=== PATIENT | female | born 1940 | race Caucasian/White ===

== ENCOUNTER 2018-10-08 12:52 | Emergency (ER) | payer MEDICARE ==
[~2018-10-08] VITALS: Ht 160 cm; Wt 83.9 kg
--- OUTSIDE RECORDS SUMMARY | 2018-10-08 12:55 | XMS REPORT ---
Author Author [facility] Address Unknown Phone Unavailable Care Team Providers Care Principal Statistical Scientist Name Role Phone Unavailable Unavailable Problems This patient has no known problems. Allergies, Adverse Reactions, Alerts This patient has no known allergies or adverse reactions. Medications This patient has no known medications.
--- OUTSIDE RECORDS SUMMARY | 2018-10-08 12:55 | XMS REPORT | Clinical Summary ---
Author Author [facility] Address Unknown Phone Unavailable Care Team Providers Care Safety Lead Name Role Phone Teddy Mccoy MD PCP Allergies Comments Active Allergy Reactions Severity Noted Date Atorvastatin 05/21/2018 Medications End Date Status Medication Sig Dispensed Refills Start Date Active ALPRAZolam (XANAX) 0.25 Take 0.25 mg 0 02/14/ MG tablet by mouth 2 8 (two) times a day as needed. Active omeprazole (PriLOSEC) 20 Take 20 mg by 0 MG capsule mouth daily. Active aspirin (ECOTRIN) 81 MG Take 81 mg by 0 enteric coated tablet mouth daily. Active felodipine (PLENDIL) 5 MG Take 1 tablet 30 tablet 1 24 hr tablet (5 mg total) 9 by mouth nightly. Active valsartan-hydrochlorothia 0 zide (DIOVAN-HCT) 320-25 9 mg per tablet Active gabapentin (NEURONTIN) 0 300 mg capsule 9 11/24/2018 Active metoprolol succinate XL Take 1 tablet 90 tablet 4 (TOPROL-XL) 100 mg 24 hr (100 mg 9 tablet total) by mouth daily for 90 doses. 11/24/2018 Active colesevelam (WELCHOL) 625 Take 3 540 tablet 3 mg tablet tablets 9 (1,875 mg total) by mouth 2 (two) times a day with meals for 90 days. Active gemfibrozil (LOPID) 600 TAKE 1 TABLET 180 tablet 3 MG tabletIndications: BY MOUTH TWO 9 Hyperlipidemia, TIMES DAILY unspecified hyperlipidemia type 07/03/2018 Discontinued gemfibrozil (LOPID) 600 Take 600 mg 0 MG tablet by mouth 2 (two) times a day. 08/26/2018 Discontinued metoprolol succinate XL Take 25 mg by 0 (TOPROL-XL) 25 mg 24 hr mouth daily. tablet 08/26/2018 Discontinued colesevelam (WELCHOL) 625 Take 1,875 mg 0 mg tablet by mouth 2 (two) times a day with meals. 09/29/2018 Discontinued gemfibrozil (LOPID) 600 Take 1 tablet 360 tablet 0 07/03/201 MG tabletIndications: (600 mg 9 Hyperlipidemia, total) by unspecified mouth 2 (two) hyperlipidemia type times a day. 07/08/2018 Discontinued felodipine (PLENDIL) 5 MG Take 5 mg by 0 24 hr tablet mouth nightly. Active Problems Problem Noted Date Congestive heart failure 05/21/2018 Coronary artery disease involving [place] coronary artery of [place] heart 05/21/2018 without angina pectoris Bradycardia 05/21/2018 Nonrheumatic aortic valve stenosis 05/21/2018 Essential hypertension 05/21/2018 Mixed hyperlipidemia 05/21/2018 Encounters Care Team Description Date Type Specialty Teddy Mccoy MD Hyperlipidemia, unspecified hyperlipidemia type 09/29/2018 Refill Family Medicine Audrey Hill MA 08/27/2018 Telephone Family Medicine Teddy Mccoy MD Essential hypertension (Primary Dx); Pulmonary hypertension (HCC); Mixed hyperlipidemia 08/26/2018 Office Visit Family Medicine Hector Berkowitz MD Results 07/08/2018 Telephone Cardiology Audrey Hill MA Hyperlipidemia, unspecified hyperlipidemia type (Primary Dx) 07/03/2018 Refill Family Medicine Hector Berkowitz MD Results 06/30/2018 Telephone Cardiology Hector Berkowitz MD Mixed hyperlipidemia (Primary Dx); Essential hypertension; Nonrheumatic aortic valve stenosis; Bradycardia; Coronary artery disease involving [place] coronary artery of [place] heart without angina pectoris; Congestive heart failure, unspecified HF chronicity, unspecified heart failure type (HCC); Bilateral carotid artery stenosis 05/21/2018 Office Visit Cardiology after 10/07/2017 Family History Medical History Relation Name Comments CABG/Stent Father Heart attack Mother Relation Name Status Comments Father Mother Social History Date Tobacco Use Types Packs/Day Years Used Never Smoker Smokeless Tobacco: Never Used Tobacco Cessation: Counseling Given: Yes Alcohol Use Drinks/Week oz/Week Comments No Alcohol Habits Answer Date Recorded How often do you have a drink containing alcohol? Never 05/21/2018 How many drinks containing alcohol do you have on Not asked a typical day when you are drinking? How often do you have six or more drinks on one Not asked occasion? Sex Assigned at Date Recorded Not on file Industry Job Start Date Occupation Not on file Not on file Not on file Travel End Travel History Travel Start No recent travel history available. Last Filed Vital Signs Time Taken Vital Sign Reading 08/26/2018 10:43 AM CDT Blood Pressure 182/80 08/26/2018 10:43 AM CDT Pulse 64 08/26/2018 10:43 AM CDT Temperature 36.4 C (97.6 F) 05/21/2018 2:23 PM DAIRY LAB TECHNICIAN Respiratory Rate 18 08/26/2018 10:43 AM CDT Oxygen Saturation 98% - Inhaled Oxygen - Concentration 08/26/2018 10:43 AM CDT Weight 85.7 kg (189 lb) 08/26/2018 10:43 AM CDT Height 160 cm (5' 3") 08/26/2018 10:43 AM CDT Body Mass Index 33.48 Plan of Treatment Care Team Description Date [place] [address] [place] [address] [phone] 05/28/2019 Office Visit Cardiology Health Maintenance Due Date Last Done Comments SHINGLES VACCINES (#1) 1989 65+ PNEUMOCOCCAL VACCINE 2004 (1 of 2 - PCV13) PNEUMOCOCCAL 2004 POLYSACCHARIDE VACCINE AGE 65 AND OVER INFLUENZA VACCINE 01/08/2019 Procedures Comments Procedure Name Priority Date/Time Associated Diagnosis COMPREHENSIVE METABOLIC Routine 08/26/2018 PANEL 11:09 AM CDT LIPID PANEL Routine 08/26/2018 11:09 AM CDT CBC HEMOGRAM Routine 08/26/2018 Essential hypertension 11:09 AM CDT Pulmonary hypertension (HCC) US CAROTID DUPLEX Routine 06/20/2018 Bilateral carotid artery BILATERAL 10:26 AM DAIRY LAB TECHNICIAN stenosis ECHOCARDIOGRAM 2D Routine 06/20/2018 Nonrheumatic aortic valve COMPLETE W MMODE SPECTRAL 10:00 AM DAIRY LAB TECHNICIAN stenosis COLOR DOPPLER (22232) Coronary artery disease involving [place] coronary artery of [place] heart without angina pectoris after 10/07/2017 Results * CBC hemogram (08/26/2018 11:09 AM CDT) WBC 5.7 3.8 - 10.8 Thousand/uL [facility] [place] RBC 4.42 3.80 - 5.10 Million/uL [facility] [place] HGB 11.9 11.7 - 15.5 g/dL [facility] [place] HCT 38.1 35.0 - 45.0 % [facility] [place] MCV 86.2 80.0 - 100.0 fL [facility] [place] MCH 26.9 (L) 27.0 - 33.0 pg [facility] [place] MCHC 31.2 (L) 32.0 - 36.0 g/dL [facility] [place] RDW 13.5 11.0 - 15.0 % [facility] [place] Platelet count 390 140 - 400 Thousand/uL [facility] [place] MPV 11.8 7.5 - 12.5 fL [facility] [place] Specimen Blood Narrative Performed At FASTING:NO QUEST FASTING: NO Resulting Agency Comment Performing Organization Information: Site ID: [id number] Name: [facility] Address: [address] [place] [id number] Director: Ruby Doshi Performing Organization Address City/State/Zipcode Phone Number [facility] [place] [address] * Lipid panel (08/26/2018 11:09 AM CDT) Cholesterol, total 168 <200 mg/dL [facility] HDL cholesterol 41 (L) >50 mg/dL [facility] [place] Triglycerides 102 <150 mg/dL [facility] LDL cholesterol 107 (H) mg/dL (calc) [facility] calculated Comment: [place] Reference range: <100 Desirable range <100 mg/dL for primary prevention; <70 mg/dL for patients with CHD or diabetic patients with > or=2 CHD risk factors. LDL-C is now calculated using the Fabián calculation, which is a validated novel method providing better accuracy than the Friedewald equation in the estimation of LDL-C. Seth MONTES et al. AMALIA. 2013;310(19): 5811-1342 (http://education.Frontleaf.com/faq/VJV666) Cholesterol/HDL ratio 4.1 <5.0 (calc) [facility] [place] Non-HDL cholesterol 127 <130 mg/dL (calc) [facility] Comment: [place] For patients with diabetes plus 1 major ASCVD risk factor, treating to a non-HDL-C goal of <100 mg/dL (LDL-C of <70 mg/dL) is considered a therapeutic option. Narrative Performed At FASTING:NO QUEST FASTING: NO Resulting Agency Comment Performing Organization Information: Site ID: [id number] Name: [facility] Address: [address] [place] [phone] Director: Ruby Doshi Performing Organization Address City/State/Zipcode Phone Number [facility] [place] [address] [place], [place] [id number] * Comprehensive metabolic panel (08/26/2018 11:09 AM CDT) Glucose 89 65 - 139 mg/dL [facility] Comment: [place] Non-fasting reference interval BUN, whole blood 23 7 - 25 mg/dL [facility] [place] Creatinine 1.07 (H) 0.60 - 0.93 mg/dL [facility] Comment: [place] For patients >49 years of age, the reference limit for Creatinine is approximately 13% higher for people identified as -Colombian. EGFR Non-Afr. [place]ian 49 (L) > OR=60 mL/min/1.73m2 [facility] [place] EGFR 57 (L) > OR=60 mL/min/1.73m2 [facility] [place] BUN/creatinine ratio 21 6 - 22 (calc) [facility] [place] Sodium 142 135 - 146 mmol/L [facility] [place] Potassium 5.3 3.5 - 5.3 mmol/L [facility] [place] Chloride 108 98 - 110 mmol/L [facility] [place] CO2 24 20 - 32 mmol/L [facility] [place] Calcium 9.9 8.6 - 10.4 mg/dL [facility] [place] Protein 7.1 6.1 - 8.1 g/dL [facility] [place] Albumin, S 4.2 3.6 - 5.1 g/dL [facility] [place] Globulin, total 2.9 1.9 - 3.7 g/dL (calc) [facility] [place] Albumin/globulin ratio 1.4 1.0 - 2.5 (calc) [facility] [place] Total bilirubin 0.5 0.2 - 1.2 mg/dL [facility] [place] Alkaline phosphatase 68 33 - 130 U/L [facility] [place] AST 16 10 - 35 U/L [facility] [place] ALT 11 6 - 29 U/L [facility] [place] Narrative Performed At FASTING:NO QUEST FASTING: NO Resulting Agency Comment Performing Organization Information: Site ID: [id number] Name: [facility] Address: [address] [place] [address] Director: Ruby Doshi Performing Organization Address City/State/Zipcode Phone Number [facility] [place] [address] [place], [place] [phone] * Us carotid duplex (06/20/2018 10:26 AM DAIRY LAB TECHNICIAN) L CCA Prox 16.36 cm/s cm/s [facility] L CCA Prox 106.13 cm/s cm/s [facility] R CCA Mid 14.47 cm/s cm/s [facility] R CCA Mid 66.69 cm/s cm/s [facility] L CCA Mid 15.33 cm/s cm/s [facility] L CCA Mid 91.77 cm/s cm/s [facility] L ECA Prox 4.97 cm/s cm/s [facility] L ECA Prox 92.37 cm/s cm/s [facility] R ECA Prox 6.48 cm/s cm/s [facility] Rt ECA Prox PSV 106.70 cm/s [facility] L ICA Prox 16.58 cm/s cm/s [facility] L ICA Prox 71.70 cm/s cm/s [facility] R ICA Prox 23.80 cm/s cm/s [facility] R ICA Prox 86.08 cm/s cm/s [facility] L ICA/CCA Ratio 0.89 cm/s [facility] R ICA/CCA Ratio 1.06 cm/s [facility] R CCA Prox 13.02 cm/s cm/s [facility] R CCA Prox 82.64 cm/s cm/s [facility] R CCA Dist 13.68 cm/s cm/s [facility] R CCA Dist 65.90 cm/s cm/s [facility] L ICA Dist 19.12 cm/s cm/s [facility] L ICA DIST 85.12 cm/s cm/s [facility] LT IC MID EDV 22.74 cm/s [facility] Lt ICA MID PSV 94.18 cm/s [facility] R ICA Dist 12.26 cm/s cm/s [facility] R ICA Mid 22.15 cm/s cm/s [facility] Rt ICA MID PSV 87.31 cm/s [facility] Lt IC/CC 88.74 cm/s [facility] L CCA Dist 13.49 cm/s cm/s [facility] L CCA Dist 69.58 cm/s cm/s [facility] L ICA Mid 22.74 cm/s cm/s [facility] L ICA Mid 94.18 cm/s cm/s [facility] Rt ICA Distal EDV 12.26 cm/s [facility] R ICA Dist 51.51 cm/s cm/s [facility] R ICA Mid 87.31 cm/s cm/s [facility] Pt Size 160.02 [facility] Pt Wt 83.91 [facility] R Car Bulb 59.73 cm/s cm/s [facility] R Vert Art 8.20 cm/s cm/s [facility] L Car Bulb 8.70 cm/s cm/s [facility] L Car Bulb 55.41 cm/s cm/s [facility] R Car Bulb 11.14 cm/s cm/s [facility] R ECA Prox 106.70 cm/s cm/s [facility] L Sub Art 170.86 cm/s cm/s [facility] R Sub Art 173.14 cm/s cm/s [facility] L Vert Art 11.20 cm/s cm/s [facility] L Vert Art 45.65 cm/s cm/s [facility] R Vert Art 53.57 cm/s cm/s [facility] Narrative Performed At [facility] There is mild, <50% non hemodynamically significant atherosclerotic plaque noted bilaterally. Antegrade vertebral flow bilaterally. Performing Organization Address [facility] Phone Number [facility] [address] [place] [address] * Echocardiogram complete w contrast and 3D if needed (06/20/2018 10:00 AM DAIRY LAB TECHNICIAN) Ao Root Diameter 2.70 cm [facility] AoV Area, Vmax 1.56 cm2 [facility] AoV Area, VTI 1.66 cm2 [facility] AoV Mean PG 7.53 mmHg [facility] AoV Peak PG 14.62 mmHg [facility] AoV Vmax 1.91 m/s [facility] AoV VTI 0.43 m [facility] IVS,d 1.10 cm [facility] Left Atrium Dimension 4.22 cm [facility] Anterior LV,d 4.38 cm [facility] LV EF,2D 92.92 % [facility] LV,s 1.81 cm [facility] LVOT Diam,S 1.91 cm [facility] LVOT Vmax 1.05 m/s [facility] LVOT VTI 0.25 m [facility] LVPWD,d 1.16 cm [facility] PV Mean Grad 3.40 mmHg [facility] PV Pk Grad 7.08 mmHg [facility] PV VMAX 1.33 m/s [facility] PV VTI 0.27 m [facility] RVOT Vmax 0.82 m/s [facility] RVSP (TR) 57.73 mmHg [facility] TR Vpeak 3.45 mm/s [facility] MV E A ratio 0.74 [facility] TR pk grad 47.73 mmHg [facility] PV Vmn 0.88 [facility] E wave decelartion time 257.38 msec [facility] MV Peak A Melvin 1.09 m/s [facility] MV Peak E Melvin 0.81 m/s [facility] AV LVOT peak gradient 4.39 mmHg [facility] RVSP 57.73 mmHg [facility] Ao Root Diameter 2.70 cm [facility] MV mean gradient 1.77 mmHg [facility] LV SYS VOL 9.90 ml [facility] LV WINTERS VOL 86.88 ml [facility] LV SI Teich 2D 41.17 ml/m2 [facility] LV SV Teich 2D 76.98 ml [facility] LVOT CI 6.85 l/min/m2 [facility] LVOT CO 12.82 l/min [facility] LVOT HR for LVOT CO 181.21 bpm [facility] LVOT SI 37.82 ml/m2 [facility] MR peak grad 5.06 mmHg [facility] MV Vmax 1.12 m [facility] MV VTI Tips 0.31 m [facility] RVOT pk grad 2.71 mmHg [facility] AoV Vmn 1.30 [facility] LVOT Vmn 0.75 [facility] Pt Size 160.02 [facility] Pt Wt 83.91 [facility] LVOT mean grad 2.40 mmHg [facility] RVOT mean grad 1.77 mmHg [facility] RVOT Vmn 0.65 m/s [facility] RVOT VTI 0.19 m [facility] LV SI Cube 2D 41.83 ml/m2 [facility] LV SV Cube 2D 78.23 ml [facility] LV vol s cube 2D 5.96 ml [facility] MV Decel slope 3.15 m/s2 [facility] LA Vol MOD A4C 53.15 ml [facility] Velocity Ratio (V1/V2) 0.55 m/s [facility] EF 88.60 % [facility] E/A ratio 0.74 [facility] LVOT area 2.86 cm2 [facility] Narrative Performed At [facility] The left ventricular chamber size is normal. Left ventricular systolic function is normal. Left Ventricular ejection fraction is 60 - 65%. There is mild left ventricular concentric hypertrophy. The tricuspid valve appears normal. Mild tricuspid valve regurgitation. Moderately elevated pulmonary artery systolic pressure. RVSP is 57.73 mmHg. Spectral Doppler shows impaired relaxation pattern of LV diastolic filling. Performing Organization Address City/State/Zipcode Phone Number [facility] [address] [place] [address] after 10/07/2017 Insurance Payer Benefit Subscriber ID Type Phone Address Plan / Group UHC MEDICARE UHC xxxxxxxxx HMO MEDICARE HMO/PPO ([place]) [place] [address] Advance Directives Patient has advance care planning documents on file. For more information, flynn e contact: Iain Myers [address] [place] [address]
--- NOTE | 2018-10-08 13:11 | NUR ---
SEEN IN TRIAGE BY
[2018-10-08] MEDS ORDERED: KETOROLAC TROMETHAMINE 60 MG/2 ML VIAL IM ONE (13:15)
[2018-10-08] MEDS ORDERED: KETOROLAC TROMETHAMINE 60 MG/2 ML VIAL ONE (13:17)
--- NOTE | 2018-10-08 13:50 | NUR ---
RECEIVED REPORT FROM [facility] TRIAGE NURSE. PT BROUGHT TO ER 9 VIA WHEELCHAIR. PT STATES THAT SHE FELL IN THE HALLWAY AND SHE LANDED ON HER LEFT KNEE AN LEFT ELBOW. ALSO C/O MID BACK PAIN.
--- NOTE | 2018-10-08 15:05 | Diagnostic Imaging Report ---
Exam: Left knee 3 views History: Fall, knee pain Comparison: None. Findings: Intact surgical hardware related to total knee arthroplasty. No periprosthetic displaced fracture. Soft tissues unremarkable. Impression: Status post total left knee arthroplasty without acute osseous abnormality. Signed by: Dr. Andi Godinez M.D. on 10/08/2018 3:02 PM
--- NOTE | 2018-10-08 15:07 | Diagnostic Imaging Report ---
EXAMINATION: PA and lateral views of the chest. COMPARISON: None CLINICAL HISTORY: Fall, back pain DISCUSSION: The lungs are well-inflated. Linear opacity in the lingula compatible with fibrosis or subsegmental atelectasis. No airspace consolidation, pleural effusion, or pneumothorax. Tortuous thoracic aorta with atherosclerotic calcification. Borderline enlargement of the cardiac silhouette without pulmonary edema. No acute osseous abnormality. Multilevel degenerative disc changes of the thoracic spine. IMPRESSION: Borderline cardiomegaly without vascular decompensation. Signed by: Dr. Andi Godinez M.D. on 10/08/2018 3:04 PM
== END 2018-10-08 15:52 | disposition home or self-care (01) ==
LOC: ER 12:52
DX: S23.3XXA Sprain of ligaments of thoracic spine, initial encounter (principal); S80.02XA Contusion of left knee, initial encounter; W19.XXXA Unspecified fall, initial encounter; I10 Essential (primary) hypertension; K21.9 Gastro-esophageal reflux disease without esophagitis; E78.5 Hyperlipidemia, unspecified
CPT/HCPCS: 71046; 73562; 99283; J1885